=== PATIENT | female | born 1990 | race Native Hawaiian/Other Pacific Islander ===

== ENCOUNTER → 2018-11-11 | Outpatient (CLI) | payer OTHER ==
--- NOTE | 2018-11-12 00:40 | ECGEPIP ---
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
== END ==
LOC: M EKG 14:45
PROVIDERS: ATTEND Midwife
DX: O24.012 Pre-existing type 1 diabetes mellitus, in pregnancy, second trimester (principal); Z3A.15 15 weeks gestation of pregnancy

== ENCOUNTER 2019-04-04 23:34 | Inpatient (IN) | payer OTHER ==
[~2019-04-04] VITALS: Ht 160 cm; Wt 88.8 kg
[2019-04-04 23:54] VITALS: BP 135/84
[2019-04-04 23:57] VITALS: BP 129/75
[2019-04-05] VITALS (42 sets, daily range): BP systolic 53–172; BP diastolic 36–102
[2019-04-05] MEDS ORDERED: INSUR SC (00:06)
[2019-04-05] MEDS ORDERED: NOVOINJ SC (00:06)
[2019-04-05] MEDS ORDERED: PRENTAB9 PO (00:06)
[2019-04-05] MEDS ORDERED: LR 1,000 ML IV SCH (00:12)
[2019-04-05] MEDS ORDERED: PENICILLIN G POTASSIUM IV 5 MU in D5W MINI-BAG PLUS 100 ML IV STA (00:12)
[2019-04-05] MEDS ORDERED: LACTATED RINGER'S 1000 ML IV STA (00:12)
[2019-04-05] MEDS ORDERED: NS 1,000 ML IV SCH ×2 (00:45→01:05)
[2019-04-05] MEDS ORDERED: NS 1,000 ML IV ONE (00:45)
[2019-04-05 00:51] LABS: HEMATOCRIT 34.7 % (36.0-47.0); HEMOGLOBIN 12.5 g/dl (12.0-15.5); MEAN CORPUSCULAR HEMOGLOBIN 29.8 pg (27.0-33.0); MEAN CORPUSCULAR VOLUME 82.6 fl (80.0-96.0); PLATELET COUNT, AUTOMATED 267 10^3/uL (150-450)
[2019-04-05] MEDS ORDERED: INSULIN HUMAN REGULAR 100 UNITS in NS 99 ML IV SCH (01:05)
[2019-04-05 01:30] LABS: HEMOGLOBIN A1c 7.9 %
[2019-04-05] MEDS ORDERED: HumaLOG INSULIN (NovoLOG) PER UNIT SC STA (01:35)
[2019-04-05] MEDS ORDERED: FENTANYL 2MCG/ML ROPIVACAINE 0.2% IN 0.9% NACL 100ML IVBAG As Ordered ONE (01:52)
[2019-04-05] MEDS ORDERED: diphenhydrAMINE INJ 50MG/ML VIAL (J1200) IV PRN (02:30)
[2019-04-05] MEDS ORDERED: LACTATED RINGER'S 1000 ML IV PRN (02:30)
[2019-04-05] MEDS ORDERED: NALOXONE INJ 0.4 MG/1 ML VIAL (J2310) IV PRN (02:30)
[2019-04-05] MEDS ORDERED: EPIDURAL COMMENT XX SCH (02:30)
[2019-04-05] MEDS ORDERED: REFRIGERATOR IV KEYS XX PRN (02:30)
[2019-04-05] MEDS ORDERED: ePHEDrine SULFATE 25 MG/5 ML(5MG/ML) SYRINGE IV PRN (02:30)
[2019-04-05] MEDS ORDERED: EPIDURAL/PCA KEYS XX PRN (02:30)
[2019-04-05] MEDS ORDERED: ONDANSETRON 4MG/2ML VIAL (J2405) IV PRN (02:30)
[2019-04-05] MEDS ORDERED: FENTANYL/ROPIVACAINE/NACL BAG 100 ML EPIDURAL SCH (02:30)
[2019-04-05] MEDS ORDERED: OXYTOCIN DRIP 30 UNITS in APPROPRIATE DILUENT 1 EA IV SCH (03:15)
[2019-04-05] MEDS ORDERED: PENICILLIN G POTASSIUM IV 2.5 MU in APPROPRIATE DILUENT 1 EA IV SCH (04:30)
[2019-04-05] MEDS: INSULIN IV RATE CHANGE DOCUMENTATION ML/HR XX SCH ×2 (05:03→06:01)
[2019-04-05] MEDS: OXYTOCIN DRIP 30 UNITS in APPROPRIATE DILUENT 1 EA IV ONE ×2 (07:51→08:51)
[2019-04-05] MEDS: PRENATAL VITAMINS CHEWABLE TABLET PO SCH ×2 (07:53→10:21)
[2019-04-05] MEDS ORDERED: METHYLERGONOVINE MALEATE 0.2 MG/ML VIAL (J2210) As Ordered ONE ×2 (07:54→07:56)
[2019-04-05 07:57] LABS: CORD GAS ABE V -6.8; CORD GAS HCO3 V 20.4 MEQ/L; CORD GAS O2 SAT V 75.4 %; CORD GAS PCO2 V 46.3 mmHg; CORD GAS PH V 7.261 UNITS; CORD GAS PO2 V 34.4 mmHg; CORD GAS SBC V 18.5 MEQ/L; CORD GAS TCO2 V 21.8 MEQ/L
[2019-04-05 07:58] LABS: CORD GAS HCO3 A 21.5 MEQ/L; CORD GAS O2 SAT A 46.5 %; CORD GAS PCO2 A 59.1 mmHg; CORD GAS PH A 7.178 UNITS; CORD GAS PO2 A 23.5 mmHg; CORD GAS TCO2 A 23.3 MEQ/L
[2019-04-05] MEDS ORDERED: MOM 30ML SUSPENSION UDC PO PRN (08:45)
[2019-04-05] MEDS ORDERED: METHYLERGONOVINE MALEATE 0.2 MG/ML VIAL (J2210) IM ONE (08:45)
[2019-04-05] MEDS ORDERED: ANUSOL HC CREAM 30GM TOP PRN (08:45)
[2019-04-05] MEDS ORDERED: OXYTOCIN INJ 10 UNITS/ML VIAL (J2590) IV ONE ×2 (08:45→09:00)
[2019-04-05] MEDS ORDERED: MEASLES,MUMPS,RUBELLA VACCINE INJ (MMR-II) (90707) SC SCH (08:45)
[2019-04-05] MEDS ORDERED: DIBUCAINE 1% OINTMENT 30GM TOP PRN (08:45)
[2019-04-05] MEDS ORDERED: miSOPROStol 200 MCG TAB (S0191) PR ONE (08:45)
[2019-04-05] MEDS ORDERED: ACETAMINOPHEN TAB 650MG DOSE (2X325MG) PO PRN (08:45)
[2019-04-05] MEDS ORDERED: DOCUSATE SODIUM 100 MG CAP PO PRN (08:45)
[2019-04-05] MEDS ORDERED: RHOGAM 300 MCG (1500 IU) INJ (J2790) IM SCH (08:45)
[2019-04-05] MEDS ORDERED: IBUPROFEN 600 MG TAB PO PRN (08:45)
[2019-04-05] MEDS: IBUPROFEN 800 MG TAB PO PRN ×2 (10:22→23:02)
[2019-04-05] MEDS ORDERED: SLF 3 ML SYR IV PRN (10:45)
--- NOTE | 2019-04-05 11:08 | HPE ---
DATE OF ADMISSION: 04/05/2019 This is a 28-year-old 3, para 2, last menstrual period (LMP) 07/09/2019, estimated date of confinement (EDC) 04/16/2019, at 39 weeks of gestation with spontaneous rupture of membranes, contractions, Group B Streptococcus (GBS) positive. Did not take her insulin at supper and did not take her bedtime insulin. She is a class B diabetic, on insulin. She is 4 cm, soft, -3 station, vertex presenting. PAST HISTORY: In 2009, at 40 weeks, spontaneous vaginal delivery, male, 6 pounds 5 ounces, had a hemorrhage with blood transfusion. In 2017, at 40 weeks, spontaneous vaginal delivery, female, 5 pounds 6 ounces, GDMA1. Presently, she is supposed to be on 14 NovoLog at bedtime and 26 NPH at bedtime plus 14 of NovoLog at breakfast and 26 of NPH at breakfast. She did not take her insulin despite the fact she was eating today. We did a bedside fingerstick of her blood sugar, and it was 332. LABS: B positive, HIV negative, hepatitis negative, RPR negative, rubella immune. Varicella immune. Pap normal. Urine negative. Gonorrhea and chlamydia are negative. One-hour glucose initially was 155. Her 28-week GTT was 155. Her 3-hour test fasting was 109, 1-hour was 246, 2-hour was 230 and her 3-hour was 165. She has not been well compliant throughout the and demonstrated by the fact she did not take her insulin at supper or bedtime. The rest of the examination is unremarkable. She is normocephalic, atraumatic. Neck: Full range of motion. Pupils equal and reactive to light. Distal pulses are symmetric. No evidence of deep vein thrombosis (DVT), pulmonary embolism (PE), or superficial phlebitis. Chest is clear bilaterally to bases. No wheezes or rhonchi. No costovertebral angle (CVA) tenderness. Abdomen: Soft, uterus two below. Lochia is moderate. Four quadrant bowel sounds. No rashes, lesions or pruritus. No arthralgia, myalgia. No complaint of chest pain. No cough, wheeze, shortness breath or dyspnea on exertion. Her vital signs are not available at the present time. Her hemoglobin is 12.5, hematocrit 34.7 and platelets are 267. Her fingerstick as mentioned was 335. We are pending her hemoglobin A1c. Our plan of management is to hang an IV drip of insulin, epidural if needed, notify pediatrics of AGDM2, and we attempted to get the pharmacy to send up the IV insulin drip, but they said it was going to be well over an hour. Therefore, we have ordered some short-acting insulin on a stat basis to cover over until the IV drip comes. We presently have a category one strip. We will have a second IV line because she has hemorrhage risk.
[2019-04-05] MEDS ORDERED: AMPICILLIN SOD/SULBACTAM SOD 3 GM in D5W MINI-BAG PLUS 100 ML IV ONE (12:00)
[2019-04-05] MEDS: ACETAMINOPHEN 500 MG TAB PO PRN (12:18)
[2019-04-05] MEDS: SLF 3 ML SYR IV SCH ×2 (13:01→20:50)
--- NOTE | 2019-04-05 13:11 | IPNPDOC ---
Text Note Date of Service The patient was seen on 04/05/19. NOTE Faviola is a 28yo [id number] s/p this AM ([id number]) complicated by uterine atony requiring uterine explorations, cytotec TN and Methergine. Bleeding has now returned to normal bleeding. course complicated by uncontrolled GDMA2. However, she has been noted to have initial temp of 100.4, then 101 by oral. Temp likely due to cytotec, but given that there was multiple uterine exploration, will give single dose of 3gm Unasyn. If she continues to fever, will proceed with a workup. Mabel Molina DO VS,Yas, I+O VS, Yas, I+O Laboratory Tests 04/05/19 00:40 Red Blood Count 4.20, Mean Corpuscular Volume 82.6, Mean Corpuscular Hemoglobin 29.8, Mean Corpuscular Hemoglobin Concent 36.0, Red Cell Distribution Width 13.3 Vital Signs Date Time Temp Pulse Resp B/P (MAP) Pulse Ox O2 Delivery O2 Flow Rate FiO2 04/05/19 11:36 101.1 20 04/05/19 11:07 93 131/59 (83) I&O- Last 24 Hours up to 6 AM 04/05/19 06:00 Intake Total 1955 ml Output Total 350 ml Balance 1605 ml MABEL MOLINA DO Apr 05, 2019 13:11
[2019-04-05] MEDS: METHYLERGONOVINE MALEATE 0.2 MG TAB PO SCH ×2 (15:00→20:50)
[2019-04-05] MEDS ORDERED: miSOPROStol 200 MCG TAB (S0191) As Ordered ONE (15:32)
[2019-04-06] MEDS: METHYLERGONOVINE MALEATE 0.2 MG TAB PO SCH ×2 (02:51→09:40)
[2019-04-06] MEDS: SLF 3 ML SYR IV SCH ×3 (05:28→21:55)
[2019-04-06] MEDS: ACETAMINOPHEN 500 MG TAB PO PRN ×2 (05:32→14:52)
[2019-04-06 05:54] VITALS: BP 122/80
[2019-04-06 07:04] LABS: HEMATOCRIT 38.5 % (36.0-47.0); HEMOGLOBIN 13.7 g/dl (12.0-15.5); MEAN CORPUSCULAR HEMOGLOBIN 30.5 pg (27.0-33.0); MEAN CORPUSCULAR HGB CONC 35.6 g/dl (32.0-36.5); MEAN CORPUSCULAR VOLUME 85.7 fl (80.0-96.0); PLATELET COUNT, AUTOMATED 226 10^3/uL (150-450); RED BLOOD COUNT 4.49 10^6/uL (4.00-5.40); WHITE BLOOD COUNT 15.5 10^3/uL (4.0-10.0)
--- NOTE | 2019-04-06 07:43 | IPNPDOC ---
Progress Note Date of Service: Apr 06, 2019 Day#: 1 Progress Note SUBJECT: Faviola is a 29yo [id number] status post spontaneous vaginal delivery on [id number] at [38]-[3]/7 weeks' at approximately, doing well day # [1]. She has been ambulating, voiding spontaneously without issue and tolerating regular diet. Breast feeding/supplementing without issue. Reports lochia is [like a normal period]. Patient is ambulating well. [Reports some cramping with . Denies any pain. Voiding and stooling without difficulty]. OBJECTIVE: VITAL SIGNS: Within normal limits, afebrile since [id number]. Alert and oriented times three. Abdomen: Fundus firm at U-1. Soft, NTTP. [Minimal] lochia. Negative Karly's sign. ASSESSMENT: Faviola is a 29yo [id number] status post spontaneous vaginal delivery on [id number] at [38]-[3]/7 weeks' at approximately, doing well day # [1]. Vitals within normal limits, afebrile, hemodynamically stable with no evidence of infection. CBC reviewed, normal H/H. PLAN: 1. Continue routine care 2. Tylenol and Motrin for pain. 3. Encourage breast feeding and ambulation. 4. [Nexplanon] for contraception for now. 5. Discharge to home tomorrow. Mabel Molina DO. VS, I&O, 24H, Yas Vital Signs/I&O Vital Signs Date Time Temp Pulse Resp B/P (MAP) Pulse Ox O2 Delivery O2 Flow Rate FiO2 04/06/19 05:54 97.4 68 17 122/80 (94) 100 I&O- Last 24 Hours up to 6 AM 04/06/19 06:00 Intake Total 2106.7 ml Output Total 2125 ml Balance -18.3 ml Laboratory Data 24H LABS Laboratory Tests 2 04/05/19 07:47: Cord Arterial Blood pH 7.178, Cord Arterial Blood PCO2 59.1, Cord Arterial Blood PO2 23.5, Cord Arterial Blood HCO3 21.5, Cord Arterial Blood Total CO2 23.3, Cord Arterial Blood Base Excess -8.0, Cord Arterial Base Excess (Standard 17.0, Cord Arterial Bld Oxygen Saturation 46.5, Cord Venous Blood pH 7.261, Cord Venous Blood PCO2 46.3, Cord Venous Blood PO2 34.4, Cord Venous Blood HCO3 20.4, Cord Venous Blood Total CO2 21.8, Cord Venous Base Excess (Actual) -6.8, Cord Venous Base Excess (Standard) 18.5, Cord Venous Blood Oxygen Saturation 75.4 04/06/19 06:46: Nucleated Red Blood Cells % (auto) 0.0 CBC/BMP Laboratory Tests 04/06/19 06:46 Red Blood Count 4.49, Mean Corpuscular Volume 85.7, Mean Corpuscular Hemoglobin 30.5, Mean Corpuscular Hemoglobin Concent 35.6, Red Cell Distribution Width 13.2 MABEL MOLINA DO Apr 06, 2019 07:43
[2019-04-06] MEDS: PRENATAL VITAMINS CHEWABLE TABLET PO SCH (09:39)
[2019-04-06] MEDS: IBUPROFEN 800 MG TAB PO PRN (17:33)
[2019-04-06 17:52] VITALS: BP 132/70
[2019-04-07] MEDS: SLF 3 ML SYR IV SCH (06:00)
[2019-04-07 06:18] VITALS: BP 130/77
[2019-04-07] MEDS: PRENATAL VITAMINS CHEWABLE TABLET PO SCH (07:20)
[2019-04-07] MEDS ORDERED: IBUP80TA PO (07:21)
[2019-04-07] MEDS ORDERED: DIBU10OI TOP (07:21)
[2019-04-07] MEDS ORDERED: ACET-683 PO (07:21)
--- NOTE | 2019-04-07 07:26 | DS.PDOC ---
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 She had uterine atony and bleeding immediately which required uterine sweeps, cytotec, and methergine to control. She received unasyn for the uterine sweep. Ultimately he did well and had no further bleeding and remained stable. Her course has otherwise been unremarkable. On her day of discharge she met all appropriate discharge criteria. She was ambulating, voiding, tolerating a regular diet, had minimal lochia, and minimal pain. DISCHARGE MEDICATIONS: Please see below. ALLERGIES: Please see below. PHYSICAL EXAMINATION ON DISCHARGE: VITAL SIGNS: Please see below. GENERAL: AAOX3, sitting up in bed, pleasant and conversant ABDOMINAL EXAMINATION: Fundus firm at U-2. No fundal tenderness EXTREMITIES: No edema PSYCHIATRIC EXAMINATION: Affect appropriate LABORATORY DATA: Please see below. ACTIVITY: Pelvic rest for 6 weeks DIET: Regular DISCHARGE PLAN: Discharge home DISPOSITION: Discharge home on 07Apr2019. DISCHARGE INSTRUCTIONS: 1. Pelvic rest for 6 weeks 2. appointment in 6 weeks ITEMS TO FOLLOWUP ON ON OUTPATIENT: 1. appointment in 6 weeks. 2. Complete 2 hr GTT 6 weeks due to GDMA2 DISCHARGE CONDITION: Stable. TIME SPENT ON DISCHARGE: Greater than 20 minutes. Janki Reid DO Vital Signs/I&Os Vital Signs Date Time Temp Pulse Resp B/P (MAP) Pulse Ox O2 Delivery O2 Flow Rate FiO2 04/07/19 06:18 97.6 66 16 130/77 (94) 04/06/19 17:52 100 Discharge Medications Scheduled No.137/Iron/Folic Acd ( Vitamin Tablet) 1 Each Tablet, 1 TAB PO DAILY, (Reported) Scheduled PRN Acetaminophen (Acetaminophen) 500 Mg Tablet, 1,000 MG PO Q6HP PRN for PAIN SCALE 6-10 Dibucaine (Dibucaine) 28 Gm Oint...g., 0 DOSE TOP Q4HP PRN for PAIN Ibuprofen (Ibuprofen) 800 Mg Tablet, 800 MG PO Q8HP PRN for PAIN SCALE 6-10 Allergies Coded Allergies: No Known Allergies (Unverified , 04/05/19) JANKI REID DO Apr 07, 2019 07:26
--- NOTE | 2019-04-07 10:07 | IPN ---
DATE OF SERVICE: 04/05/2019 This is a 29-year-old 3, para 2, at 39 weeks of gestation, came in with questionable ruptured membranes and found to be 4 cm dilated in active labor. She is in a type 2 diabetic on insulin. However, she did not take her evening insulin, and she did not take her suppertime insulin. Her fingerstick blood sugar when she was here was 300. On examination, she had a category one strip, was having contractions 5-7 minutes apart moderate intensity. She is 4 cm with lots of mucusy show. Her A1c was 7.9. Her estimated glucose initially was 180. She was started on an insulin drip; and presently, her sugar is down to 150, and the insulin drip is not dropped down to 3 units per hour. We start at 5 units per hour. Hemoglobin 12.5, hematocrit 34.7, and platelets are 267. Her vital signs presently, her blood pressure is 116/59, respirations are 18, pulse is 100, and she is afebrile at 97.2. On pelvic examination, she is about 9 cm dilated. Large bulging membranes. An artificial rupture of membranes (AROM) was done, draining moderate amount of clear liquor. The vertex was well applied to the cervix, and she is at -2 station. She has been prophylactically treated for group B streptococcus (GBS), and our thought was that she probably did not rupture her membranes but had large amount of mucusy show. She is feeling some significant pressure, and we anticipate a vaginal delivery. Epidural is in place. Safe to proceed. Her Pitocin is at 14 milliunits per minute.
--- NOTE | 2019-04-07 17:56 | DN ---
DATE OF DELIVERY: 04/05/2019 This lady is a 29-year-old, 3, para 2 admitted with spontaneous labor. Risk factors are diabetes, uncontrolled, noncompliant. She had an epidural in place, had a spontaneous vaginal delivery of a male weighing 8 pounds 3 ounces, 3710 grams, scores of 8 and 9 at 1 and 5 minutes respectively. Arterial pH 7.17, base excess -8.0, venous pH 7.26, base excess -6.8. She had a spontaneous delivery of placenta, definitely had a uterine atony and had a hemorrhage of about 700 mL. Manual evaluation and evacuation of the uterus showed there was no evidence of tissue in the uterus, there were some clots. The fundus itself was boggy. The rest of the uterus was well contracted. She was given Cytotec 1000 mg per rectum, Methergine 0.2 IM and was running Pitocin at 999 per hour. Manual massage helped to control the bleeding and it was contained, the patient did not require a blood transfusion. The vaginal areas were intact. No evidence of lacerations or tears. The sphincter was intact and her posterior eubanks were intact. In summary, we have a term gestation, delivered a live male with a hemorrhage controlled with medication.
== END 2019-04-07 10:40 | disposition home or self-care (01) | DRG 806 ==
LOC: M LDO 23:34 → M LDI 04-05 00:40 → M OBS 04-05 14:07
PROVIDERS: ADMIT Obstetrics & Gynecology; ATTEND Obstetrics & Gynecology
PROC: 10E0XZZ Delivery of Products of Conception, External Approach (ICD-10-PCS; principal; 2019-04-05)
DX: O24.12 Pre-existing type 2 diabetes mellitus, in childbirth (principal); Z37.0 Single live birth; O72.1 Other immediate postpartum hemorrhage; Z3A.39 39 weeks gestation of pregnancy; Z91.14 Patient's other noncompliance with medication regimen; Z79.4 Long term (current) use of insulin; E11.65 Type 2 diabetes mellitus with hyperglycemia